=== PATIENT | male | born 1955 | race Caucasian/White ===

== ENCOUNTER 2020-01-06 08:25 | Outpatient (CLI) | payer OTHER ==
--- NOTE | 2020-01-07 00:50 | Ultrasound Report ---
Reason: CHRONIC KIDNEY DISEASE Procedure Date: 01/06/2020 Accession Number: [id number] / [id number] Procedure: US - Retroperitoneal CPT Code: Final Report FULL RESULT: EXAM: RENAL ULTRASOUND EXAM DATE: 01/06/2020 09:30 AM. CLINICAL HISTORY: CHRONIC KIDNEY DISEASE. COMPARISON: None. TECHNIQUE: Real-time scanning was performed with static images obtained. FINDINGS: Right Kidney: 10.3 x 4.2 x 6.3 cm. Multiple nonobstructing stones measuring up to 5 x 5 mm. No contour deforming mass or hydronephrosis seen. Left Kidney: 11.6 x 5.6 x 4.6 cm. Nonobstructing lower pole stone measuring 6 mm. Bladder: Bilateral jets seen. Bladder diverticulum. Multiple bladder stones measuring up to 1.4 x 1.0 x 1.2 cm. The prevoid bladder volume was 90 cc. The postvoid bladder volume was 28 cc. Other: Prostate measures 4.9 x 4.2 x 3.5 cm. There is an area of somewhat prominent vascularity within the prostate. IMPRESSION: 1. Nonobstructing bilateral renal stones. 2. Bladder diverticulum. 3. Bladder stones measuring up to 1.4 x 1.0 x 1.2 cm. 4. Post void residual 28 cc. 5. There is some prominent vascularity within the prostate, of uncertain significance. Consider prostate MRI for further evaluation. RADIA
== END 2020-01-06 08:26 | disposition home or self-care (01) ==
LOC: DI 08:25
PROVIDERS: ATTEND Internal Medicine
DX: N20.0 Calculus of kidney (principal); N32.3 Diverticulum of bladder; N21.0 Calculus in bladder; N18.9 Chronic kidney disease, unspecified
CPT/HCPCS: 76770

== ENCOUNTER 2021-08-12 09:58 | Outpatient (CLI) | payer MEDICARE, BC | END 2021-08-12 09:59 | disposition home or self-care (01) | LOC: LAB 09:58 | PROVIDERS: ATTEND Internal Medicine Nephrology | DX: C61 Malignant neoplasm of prostate (principal); Z12.5 Encounter for screening for malignant neoplasm of prostate | CPT/HCPCS: 36415; 84153 ==

== ENCOUNTER 2021-08-13 09:43 | Outpatient (CLI) | payer MEDICARE, BC | END 2021-08-13 09:44 | disposition home or self-care (01) | LOC: LAB 09:43 | PROVIDERS: ATTEND Urology | DX: R97.20 Elevated prostate specific antigen [PSA] (principal) | CPT/HCPCS: 36415; 84153 ==

== ENCOUNTER 2021-11-17 09:10 | Outpatient (CLI) | payer MEDICARE ==
[2021-11-17 09:34] LABS: BASOPHILS # (AUTO) 0.1 10^3/uL (0.0-0.1); BASOPHILS % (AUTO) 0.8 %; EOSINOPHILS # (AUTO) 0.2 10^3/uL (0.0-0.7); EOSINOPHILS % (AUTO) 2.4 %; HCT - HEMATOCRIT 38.5 % (42.0-52.0); HGB - HEMOGLOBIN 12.5 g/dL (14.0-18.0); LYMPHOCYTES # (AUTO) 1.4 10^3/uL (1.5-3.5); LYMPHOCYTES % (AUTO) 18.8 %; MEAN CORPUSCULAR HEMOGLOBIN 29.3 pg (27.0-31.0); MEAN CORPUSCULAR HGB CONC 32.5 g/dL (32.0-36.0); MEAN CORPUSCULAR VOLUME 90.4 fL (80.0-94.0); MEAN PLATELET VOLUME 10.4 fL (7.4-11.4); MONOCYTES # (AUTO) 0.7 10^3/uL (0.0-1.0); MONOCYTES % (AUTO) 8.8 %; NEUTROPHILS # (AUTO) 5.1 10^3/uL (1.5-6.6); NEUTROPHILS % (AUTO) 68.8 %; PLT - PLATELET COUNT 190 10^3/uL (130-450); RED BLOOD COUNT 4.26 10^6/uL (4.70-6.10); RED CELL DISTRIBUTION WIDTH 13.4 % (12.0-15.0); WHITE BLOOD COUNT 7.4 x10^3/uL (4.8-10.8)
[2021-11-17 09:45] LABS: CALCIUM 9.3 mg/dL (8.5-10.3)
[2021-11-18 11:19] LABS: CHOL/HDL RATIO 4.4 (<5.0); CHOLESTEROL 258 mg/dL; HDL CHOLESTEROL 59 mg/dL; LDL CHOLESTEROL,CALCULATED 181 mg/dL; LDL/HDL RATIO 3.1 (<3.6); TRIGLYCERIDES 89 mg/dL; VLDL CHOLESTEROL 18 mg/dL
== END 2021-11-17 09:11 | disposition home or self-care (01) ==
LOC: LAB 09:10
PROVIDERS: ATTEND Internal Medicine Nephrology
DX: N05.9 Unspecified nephritic syndrome with unspecified morphologic changes (principal); D70.9 Neutropenia, unspecified; D63.1 Anemia in chronic kidney disease; E78.5 Hyperlipidemia, unspecified
CPT/HCPCS: 36415; 80048; 80061; 83721; 85025

== ENCOUNTER 2024-05-11 11:16 | Outpatient (CLI) | payer MEDICARE | END 2024-05-11 23:59 | disposition EMS.NT | LOC: EMS 11:16 | DX: T67.1XXA Heat syncope, initial encounter (principal) ==

== ENCOUNTER 2025-06-17 13:02 | Observation (INO) ==
--- OUTSIDE RECORDS SUMMARY | 2025-06-17 13:38 | EXTERNAL MEDICAL SUMMARY RPT | Continuity of Care Document ---
Author Organization [facility] Address [address] [place] [id number] Phone Problems date description facility 2025-03-25 10:18 Unspecified nephriti c syndrome with unspecified morphologic changes [email or web address] 2025-04-03 12:21 Unspecified nephriti c syndrome with unspecified morphologic changes [facility] 2025-04-03 12:21 Cystitis, unspecified without h [facility]ia [facility] 2025-04-03 12:21 Dysuria [facility] 2025-05-21 14:33 Hypo-osmolality and hyponatremi a [email or web address] 2025-05-21 14:33 Urinary tract infection, site n ot specified [facility] 2025-05-21 14:53 Hypo-osmolality and hyponatremi a [facility] 2025-05-21 14:53 Urinary tract infection, site n ot specified [facility] 2025-05-22 16:24 Hypo-osmolality and hyponatremi a [facility] 2025-05-22 16:24 Urinary tract infection, site n ot specified [facility] 2025-05-22 16:30 Hypo-osmolality and hyponatremi a [facility] 2025-05-22 16:30 Urinary tract infection, site n ot specified [facility] 2025-05-22 16:32 Hypo-osmolality and hyponatremi a [facility] 2025-05-22 16:32 Urinary tract infection, site n ot specified [facility] 2025-05-22 16:40 Hypo-osmolality and hyponatremi a [facility] 2025-05-22 16:40 Urinary tract infection, site n ot specified [facility] 2025-05-22 17:00 Hypo-osmolality and hyponatremi a [facility] 2025-05-22 17:00 Urinary tract infection, site n ot specified [email or web address] 2025-05-22 17:19 Hypo-osmolality and hyponatremi a [email or web address] 2025-05-22 17:19 Urinary tract infection, site n ot specified [email or web address] 2025-05-23 00:06 Hypo-osmolality and hyponatremi a [email or web address] 2025-05-23 00:06 Urinary tract infection, site n ot specified [facility] 2025-05-26 17:42 Hypo-osmolality and hyponatremi a [email or web address] 2025-05-27 05:44 Hypo-osmolality and hyponatremi a [email or web address] 2025-05-27 05:44 Urinary tract infection, site n ot specified [email or web address] 2025-05-27 09:07 Hypo-osmolality and hyponatremi a [email or web address] 2025-05-27 09:07 Urinary tract infection, site n ot specified [email or web address] 2025-05-28 00:04 Hypo-osmolality and hyponatremi a [email or web address] 2025-05-28 09:46 Hypo-osmolality and hyponatremi a [email or web address] 2025-05-28 09:46 Urinary tract infection, site n ot specified [email or web address] 2025-05-28 09:46 [facility] oliguria [facility] 2025-05-28 12:58 Hypo-osmolality and hyponatremi a [email or web address] 2025-05-28 14:44 Cystitis, unspecified without h ematuria [email or web address] 2025-05-28 16:07 Cystitis, unspecified without h ematuria [email or web address] 2025-05-28 16:07 Urgency of urination [facility] 2025-05-29 00:04 Cystitis, unspecified without h ematuria [email or web address] 2025-05-29 09:39 Cystitis, unspecified without h ematuria [email or web address] Results/Labs test date facility value unit notes Result panel 1 GLUCOSE 2025-03-24 08:41 [email or web address] 109 mg/dl As of April 2023 testing method has changed, this may include reference ranges. ANION GAP 2025-03-24 08:41 [email or web address] 11.0 (missing ) (missing) SODIUM 2025-03-24 08:41 [facility] 137 mmol/l (missing) GFR - MDRD 2025-03-24 08:41 [facility] 20 (lucía guzmán) Social History date description facility
[2025-06-17 14:04] LABS: HCT - HEMATOCRIT 40.4 % (42.0-52.0); HGB - HEMOGLOBIN 13.4 g/dL (14.0-18.0); MEAN PLATELET VOLUME 10.7 fL (7.4-11.4); NRBC ABSOLUTE COUNT (AUTO) 0.00 x10^3/uL; NUCLEATED RED BLOOD CELLS AUTO 0.0 /100WBC; PLT - PLATELET COUNT 227 10^3/uL (130-450); RED CELL DISTRIBUTION WIDTH 14.3 % (12.0-15.0)
[2025-06-17 14:16] LABS: ALT ALANINE AMINOTRANSFERASE 16.0 IU/L (10-60); AST ASPARTATE AMINOTRANSFERASE 22.0 IU/L (10-42); BUN - BLOOD UREA NITROGEN 46.0 mg/dL (6-20); CARBON DIOXIDE - CO2 34.0 mmol/L (21-32); CREATININE 3.0 mg/dL (0.6-1.3); GFR - MDRD 21.0 (>89)
--- NOTE | 2025-06-17 16:44 | ED Physician Documentation ---
History of Present Illness Stated complaint Stated Complaint: CATH ISSUES Chief complaint Chief Complaint: General Additonal information Additional information: Patient is a 69-year-old male with history of Monticello's disease, diffuse myalgias, BPH, who presents the ER due to concerns for failure to thrive. and patient share that he has been struggling with urinary obstruction, and was seen in the ER yesterday elsewhere, had had a Peralta catheter placed. He presented initially in part because his Peralta catheter bag exploded overnight, and was draining. During my evaluation this has been replaced, and flowing without difficulty. Patient and share that he has been unintentionally losing weight over the last several weeks, and is down approximate 15 pounds. He states that when he ambulates he is frequently lightheaded, and has had a few falls. He and his sleep in different locations, and the other night he had a fall in the middle of the night. He denied any loss of consciousness, and does not endorse any pain as a result of this. Patient and are concerned about his deteriorating status, and presented the ER for evaluation, and admission/discharge planning to safer facility. Review of Systems Status of ROS: See HPI Meds/Allgy Home Medications Ambulatory Orders Medication Instructions Recorded Confirmed atorvastatin 20 mg tablet (Lipitor) 40 mg PO QDAY 02/2006/17/25 cefdinir 300 mg capsule 300 mg PO BID 06/17/2506/17 gabapentin 100 mg capsule 100 mg PO HS 06/17/25 Allergies Allergies Allergy/AdvReac Type Severity Reaction Status Date / Time amlodipine AdvReac Severe sedation Verified 06/17/25 15:23 finasteride AdvReac Severe sedation Verified 06/17/25 15:23 lacosamide AdvReac Severe sedation Verified 06/17/25 15:23 tropical fruits AdvReac Intermediate urinary Uncoded 06/17/25 15:23 reaction PFSH Active Problems All Active Problems (Updated 06/17/25 @ 18:44 by Flynn Jones MD) Adult failure to thrive (Acute) Protein calorie malnutrition (Acute) Postobstructive diuresis (Acute) Acute urinary retention (Acute) Protein-calorie malnutrition, severe (Acute) Acute hyponatremia (Acute) UTI (urinary tract infection) (Acute) History of fibromyalgia (Acute) Chronic pain (Acute) Medical History Medical History (Updated 06/17/25 @ 18:44 by Flynn Jones MD) 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 Home Mobility Equipment: Cane Do you feel safe in your home environment?: Yes History of physical, verbal, emotional, or financial abuse?: No ETOH Use: None Substance Use: denies use Exam Exam Vital Signs: Vital Signs x48h Temp Pulse Resp BP Pulse Ox 06/17/25 18:03 81 20 114/76 91 L 06/17/25 17:22 77 20 109/74 92 06/17/25 15:41 82 18 96/57 L 92 06/17/25 13:12 36.1 C L 98 18 99/73 96 Constitutional Appears stated age, resting in examination bed, lean, emaciated appearance. HENMT normocephalic and head/scalp atraumatic Eyes PERRL, EOMs intact bilaterally, conjunctivae normal and no scleral icterus Neck/C-Spine visual inspection normal, trachea midline and cervical spine nontender Chest palpation of chest normal Respiratory breath sounds equal bilaterally and normal respiratory effort Cardiovascular normal heart rate noted and regular rhythm noted Mildly low blood pressure, 96/57, normal S1-S2, no murmurs. Regular rate and rhythm. Radial pulses 2+ and symmetric Gastrointestinal abdomen soft to palpation and nontender to palpation Genitourinary Peralta catheter in place Extremities normal to inspection and normal to palpation Neurology Alert and oriented x 3. Cranial nerves grossly intact. Strength is symmetric, 5 out of 5 bilaterally. Sensation intact throughout this. Psychiatry Mental Status Exam documented in the separate MSE oriented x3 Skin Pale, appears gaunt. Results Vitals Vitals: Vital Signs - 24 hr 06/17/25 13:12 06/17/25 15:41 06/17/25 17:22 Temperature 36.1 C L Temperature Source Temporal Artery Scan Pulse Rate 98 82 77 Respiratory Rate 18 18 20 Blood Pressure 99/73 96/57 L 109/74 O2 Saturation 96 92 92 O2 Source Room air Room air Room air Pain Intensity 0 0 0 06/17/25 18:03 Temperature Temperature Source Pulse Rate 81 Respiratory Rate 20 Blood Pressure 114/76 O2 Saturation 91 L O2 Source Room air Pain Intensity 0 Oxygen O2 Source Room air Labs Labs: Laboratory Tests 06/17/25 06/17/25 13:51 16:50 WBC 7.0 RBC 4.32 L Hgb 13.4 L Hct 40.4 L MCV 93.5 MCH 31.0 MCHC 33.2 RDW 14.3 Plt Count 227 MPV 10.7 Neut # (Auto) 5.6 Lymph # (Auto) 0.6 L [place] # (Auto) 0.6 Eos # (Auto) 0.1 Baso # (Auto) 0.0 Absolute Nucleated RBC 0.00 Nucleated RBC % 0.0 Sodium 132 L Potassium 4.3 Chloride 91 L Carbon Dioxide 34 H Anion Gap 7.0 BUN 46 H Creatinine 3.0 H Estimated GFR (MDRD) 21 L Glucose 140 H Calcium 9.4 Magnesium 2.4 H Total Bilirubin 0.5 AST 22 ALT 16 Alkaline Phosphatase 96 Troponin I High Sens 14.3 Total Protein 6.8 Albumin 4.0 Globulin 2.8 Albumin/Globulin Ratio 1.4 Lipase 188 H TSH 2.48 Urine Color LT. YELLOW Urine Clarity CLOUDY Urine pH 6.0 Ur Specific [place] 1.015 Urine Protein TRACE Urine Glucose (UA) NEGATIVE Urine Ketones NEGATIVE Urine Occult Blood SMALL H Urine Nitrite POSITIVE H Urine Bilirubin NEGATIVE Urine Urobilinogen 0.2 (NORMAL) Ur Leukocyte Esterase MODERATE H Urine RBC 6-10 H Urine WBC 11-25 H Ur Squamous Epith Cells NONE SEEN Urine Bacteria Moderate H Urine Culture Comments INDICATED PD Medical Decision Making ED course ED course: Assessment: Patient is a 69-year-old male with history of Monticello's disease, significant rheumatologic history, presenting with unintentional weight loss, weakness, new onset urinary obstruction yesterday with Peralta catheter placement at outside ER, unwitnessed falls at home where he lives alone. DDx: Includes but not limited to, UTI, electrolyte abnormality, volume depletion, failure to thrive, traumatic subarachnoid hemorrhage, subdural hemorrhage, skull fracture, dehydration, etc. Workup: Sodium 132, BUN 46, creatinine 3.0 appears similar to baseline, lipase 188. CT head without evidence of acute injury. Urine studies with moderate leukocyte esterase, positive nitrites, no squamous epithelial cells. Treatment: 1 L LR, Rocephin 2 g Discussion: Patient and are concerned about patient deteriorating status. He does fit the picture of someone who is failure to thrive/severe protein calorie restriction, and do agree that his knee living alone with their ambulation concerns and falls that are unwitnessed is concerning. He is not on blood thinners. Workup today shows no evidence of intracranial pathology after his fall. He is otherwise denies pain throughout his habitus currently. He does have a UTI, which I started with single dose of IV antibiotics in the ER. At time of my signout I had discussed preliminarily with hospitalist team admission for this patient due to his UTI, and overall deteriorating picture. At time of my handoff I was awaiting admission decision from hospitalist team. Pt handed off to Dr. Hutchins. Please refer to his documentation. Disposition: Remains in ER, awaiting admission decision from hospitalist team. Discharge Plan Discharge Patient Disposition: ED Place in Observation Condition: Stable Clinical Impression: Protein-calorie malnutrition, severe, Acute urinary retention, Postobstructive diuresis, UTI (urinary tract infection), Protein calorie malnutrition, Adult failure to thrive Prescriptions: No Action cefdinir 300 mg capsule 300 mg PO BID gabapentin 100 mg capsule 100 mg PO HS atorvastatin [Lipitor] 20 mg tablet 40 mg PO QDAY Print Language: Tamazight Stand Alone Forms: PCP List
[2025-06-17] MEDS: LACTATED RINGERS 1,000 ML IV STA (16:48)
[2025-06-17 17:05] LABS: GLUCOSE, URINE (UA) NEGATIVE (NEGATIVE); KETONES,URINE (UA) NEGATIVE (NEGATIVE); OCCULT BLOOD,URINE SMALL (NEGATIVE)
[2025-06-17 17:14] LABS: SQUAMOUS EPITHELIAL CELL,UR NONE SEEN (<= Few)
--- NOTE | 2025-06-17 17:42 | CT Report ---
PROCEDURE: CT Head WO INDICATIONS: AMS, frequent falls TECHNIQUE: CT of the head was performed, without intravenous contrast. Reformats: Coronal and sagittal. For radiation dose reduction, the following was used: automated exposure control, adjustment of mA and/or kV according to patient size. COMPARISON: None. FINDINGS: Image quality: Diagnostic. CSF spaces: Basal cisterns are patent. No extra-axial fluid collections. Ventricles are normal in size and shape. Brain: No midline shift. No intracranial mass effect or hemorrhage. No area of hypodensity in a vascular distribution to suggest acute infarction. There is periventricular hypodensity consistent with chronic microvascular ischemic disease. Age-related parenchymal loss. Skull and face: Calvarium and visualized facial bones are intact, without suspicious lesions. Prior right craniotomy. Sinuses: Mucosal thickening in the left maxillary sinus. Mastoid Are clear. IMPRESSION: No acute intracranial pathology. Prior right craniotomy. Reviewed by: Herbert Shahid MD on 06/17/2025 5:41 PM PDT Approved by: Herbert Shahid MD on 06/17/2025 5:41 PM PDT Station ID: [id number]
--- NOTE | 2025-06-17 18:39 | ED Physician Documentation ---
ED Addendum Addendum Addendum: Signout from Dr. Moreno at 6:30 PM. We were awaiting the hospitalist to call back and I went ahead and called ANTONIO Arellano noting that the patient probably also fit criteria for severe protein calorie malnutrition and she will bring him in to observation. Discharge Plan Discharge Patient Disposition: ED Place in Observation Condition: Stable Clinical Impression: Protein-calorie malnutrition, severe, Acute urinary retention, Postobstructive diuresis, UTI (urinary tract infection), Protein calorie malnutrition, Adult failure to thrive Interventions: ED Admission Assessment Last Done: 06/17/25 19:42
[2025-06-17] MEDS: cefTRIAXone 2 GM in SODIUM CHLORIDE 0.9% MINIBAG 100 ML IV STA (18:59)
--- NOTE | 2025-06-17 19:39 | HISTORY & PHYSICAL EXAMINATION ---
Chief Complaint Chief Complaint Chief Complaint: problems with narayan History of Present Illness History Obtained From Records Reviewed: [facility] ED visit last evening,Sheron rheumatology note, neurology note History obtained from: patient and spouse History of Present Illness HPI Comment/Other: 69M w Carlos's Chorea, Ankylosing spondylitis, BPH, SDH s/p crani, nephrolithiasis, gluten intolerance presents to ED with multiple complaints. unintentional weight loss over the last several weeks, at least 15# since December, and defintely 5-8# over the last week. Went to see a new PCP in [place] with Sheron yesterday, was sent to the ED, after it was noted that he was in urinary retention. He states that overnight, his narayan bag "exploded, and so they came here. Things have not been going well at home. He walks without assistive devices, but has noted that he is more and more unsteady on his feet. He was dx with his Conecuh's disease in 2020 after being treated for a subdural hematoma- at that time also had complicated urinary treat infection. in any event, at home, more and more unsteady on his feet, and over the last week or so he has been weak with poor appetite. Denies alcohol use, not a smoker. live with , but sleeps in a separate dwelling from her. Wants to be DNR, but does not want me to share this with his family. Adriana is his surrogate decision maker. Meds/Allgy Home Medications Ambulatory Orders Medication Instructions Recorded Confirmed atorvastatin 20 mg tablet (Lipitor) 40 mg PO QDAY 02/2006/17/25 cefdinir 300 mg capsule 300 mg PO BID 06/17/2506/17 gabapentin 100 mg capsule 100 mg PO HS 06/17/25 Allergies Allergies Allergy/AdvReac Type Severity Reaction Status Date / Time amlodipine AdvReac Severe sedation Verified 06/17/25 15:23 finasteride AdvReac Severe sedation Verified 06/17/25 15:23 lacosamide AdvReac Severe sedation Verified 06/17/25 15:23 tropical fruits AdvReac Intermediate urinary Uncoded 06/17/25 15:23 reaction PFSH Active Problems All Active Problems (Updated 06/17/25 @ 23:17 by ANTONIO Blood) Conecuh disease (Acute) Renal insufficiency (Acute) Hypotension (Acute) Adult failure to thrive (Acute) Protein calorie malnutrition (Acute) Postobstructive diuresis (Acute) Acute urinary retention (Acute) Acute hyponatremia (Acute) UTI (urinary tract infection) (Acute) History of fibromyalgia (Acute) Chronic pain (Acute) Medical History Medical History (Updated 06/17/25 @ 23:17 by ANTONIO Blood) Protein-calorie malnutrition, severe Subdural hematoma Chronic kidney disease Social History Social History (Updated 06/17/25 @ 15:28 by Chico Desai RN) Smoking Status: Never smoker Second hand tobacco smoke exposure: No Do you dip or chew tobacco?: No Do you vape?: No Living arrangement: At home Marital Status: Living Condition: With spouse/s.o. Level: Independent Home Mobility Equipment: Cane and Walker Do you feel safe in your home environment?: Yes History of physical, verbal, emotional, or financial abuse?: No ETOH Use: None Substance Use: denies use POLST Patient has POLST: No Review of Systems Status of ROS: 10 or more systems reviewed and unremarkable except as noted in history and below Prior Level of Functionality: walks without assistive devices, but he thinks he should probably use a walker. Exam Exam Vital Signs: Vital Signs x48h Temp Pulse Pulse Resp BP BP Pulse Ox 06/17/25 20:00 36.6 C 77 16 119/75 97 06/17/25 18:03 81 20 114/76 91 L 06/17/25 17:22 77 20 109/74 92 06/17/25 15:41 82 18 96/57 L 92 Constitutional normal general appearance and no apparent distress almost constant head movements, appears chronically ill, temporal wasting HENMT normocephalic, head/scalp atraumatic, hearing grossly normal bilaterally, oral mucous membranes normal, dentition normal and gingiva normal Eyes conjunctivae normal Neck/C-Spine visual inspection normal and trachea midline Lymph no lymphadenopathy noted Chest inspection of chest normal Respiratory breath sounds equal bilaterally, normal respiratory effort and clear to auscultation bilaterally Cardiovascular normal heart rate noted Gastrointestinal abdomen soft to palpation and nontender to palpation schaphoid abdomen Genitourinary no CVA tenderness Back/Pelvis spine normal to inspection Extremities normal to inspection and normal to palpation Neurology movement abnormality noted (constant head movemetns. ) (choreoathetosis) and no sensory deficits noted Psychiatry mental status grossly normal, oriented x3, thought process normal, cooperative, affect normal and memory normal Skin skin color normal and no rash Conclusion/Plan Problem List (1) Adult failure to thrive: Plan: He is not feeling well at home. he feels weak and dizzy. he had hypotension in the ED that resolved with fluid administration, but he does not feel that he can take care of himself at home his voices that they are not doing well, and that he is not getting the help he needs at home. They do not have estabilished primary care, and are in need of PT and home health services. I discussed this patient with Dr Jones, and Dr Hutchins in the ED ,and the decision was made to admit him to Observation status. I will start IV abx, order PT eval, and follow urine cultures. I will consult social work to set up outpatient services for him. Selected Entries 06/17/25 13:12 06/17/25 15:41 06/17/25 17:22 Blood Pressure 99/73 96/57 L 109/74 06/17/25 18:03 Blood Pressure 114/76 (2) UTI (urinary tract infection): Plan: This is a gentleman with who presented to ED at [facility] with acute urinary retention yesterday. he was prescribed abx and a narayan was placed. He has a UA which remains positive in our ED. he was given 2g rocephin and I will continue this on admission. I was able to look at UA yesterday at [facility], Leuk est pos, nitrite neg. he is nitrite positive tonight. no growth to date on urine culture at [facility] on 06/16. (3) Acute hyponatremia: Plan: History of same, 132 on admit. I have ordered repeat BMP for the AM. I think this will resolve with treatment of his UTI and improved oral intake. outpatient labs on 06/16 showed Na 131 (4) Acute urinary retention: Plan: Narayan in place. he is estabilished with Dr Fu at [facility] urology. would recommend that this stays in place until he is able to followup. (5) Protein calorie malnutrition: Plan: decreased po intake over the last months. This part of his failure to thrive. stuggling with constipation likely as a part of his neurological disorder. (6) Hypotension: Plan: maybe related to poor po intake. he was given one liter in the ED with improvement. I will give him 100ml/hr for a total of 2 liters, and I have given him a gluten free diet, per his request. will check orthostatic vital signs daily. (7) Renal insufficiency: Plan: [facility], his baseline Cr is about 3.0. he is at baseline, this is not ANNAMARIE, his carboy filler is Dr Elmore (8) Conecuh disease: Plan: diagnosed in 2020 follows with neurology. Plan 69M with severe degenerative neurological disorder and FTT pressents with acute UTI, and transient hypotension. I will admit to obs status and plan to dc to home with home health after appropriate eval and treatment. I have spent 85 minutes in the care of this patient today. This includes time [id number], review and ordering of diagnostic imaging and laboratory studies and consultation with other providers. Monitoring the patient's signs symptoms, evaluation of medication effectiveness and patient's response to treatment. Lab Results Lab results reviewed: Yes 06/17/25 13:51 06/17/25 13:51 Diagnostic Imaging Results Diagnostic Imaging Results Comments: CT head neg EKG Results EKG Interpreted Independently: No EKG Findings: sinuse at rate of 75 Core Measures Anticipated LOS I expect patient to be DC'd or transferred within 96 hours.: Yes DVT/VTE - Prophylaxis VTE/DVT Device ordered at admit?: Yes VTE/DVT Prophylaxis med ordered at admit?: Yes
[2025-06-17] MEDS ORDERED: oxyCODONE 5 MG TABLET PO PRN (19:42)
[2025-06-17] MEDS ORDERED: ONDANSETRON 4 MG/2 ML VIAL IVP PRN (19:42)
[2025-06-17] MEDS ORDERED: SODIUM CHLORIDE FLUSH 0.9% 10 ML SYRINGE IVP PRN (19:42)
[2025-06-17] MEDS ORDERED: ACETAMINOPHEN 325 MG TABLET PO PRN (19:42)
[2025-06-17] MEDS: DEXTROSE 5%-0.9% NACL 1,000 ML IV SCH (19:50)
[2025-06-17] MEDS: ATORVASTATIN 40 MG TABLET PO SCH (20:39)
[2025-06-17] MEDS: GABAPENTIN 100 MG CAPSULE PO SCH (20:39)
[2025-06-18] MEDS: SODIUM CHLORIDE FLUSH 0.9% 10 ML SYRINGE IVP SCH (02:54)
[2025-06-18 06:25] LABS: HCT - HEMATOCRIT 37.8 % (42.0-52.0); HGB - HEMOGLOBIN 12.1 g/dL (14.0-18.0); MEAN PLATELET VOLUME 10.1 fL (7.4-11.4); NRBC ABSOLUTE COUNT (AUTO) 0.00 x10^3/uL; NUCLEATED RED BLOOD CELLS AUTO 0.0 /100WBC; PLT - PLATELET COUNT 209 10^3/uL (130-450); RED CELL DISTRIBUTION WIDTH 14.4 % (12.0-15.0)
[2025-06-18 06:42] LABS: BUN - BLOOD UREA NITROGEN 34.0 mg/dL (6-20); CARBON DIOXIDE - CO2 29.0 mmol/L (21-32); CREATININE 2.3 mg/dL (0.6-1.3); GFR - MDRD 28.0 (>89)
[2025-06-18] MEDS: CHOLECALCIFEROL 5,000 UNIT CAPSULE PO SCH (08:28)
[2025-06-18] MEDS: ENOXAPARIN 30 MG/0.3 ML SYRINGE SUBQ SCH (08:29)
[2025-06-18] MEDS: cefTRIAXone 2 GM in SODIUM CHLORIDE 0.9% MINIBAG 100 ML IV SCH (08:29)
--- NOTE | 2025-06-18 13:06 | PT Plan of Care ---
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 Admitted with UTI, hyponatremia and found to be orthostatic. PMH includes [place]'s dx in 2020 and ankylosing spondylitis. 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 Please see medical record for further hx. Cleared for eval by hospitalist. Pt lives in [place] with and is normally indep with mobility and ADLs but has increasing difficulty lately with increased falls. Upon PT eval, pt reports vertigo ongoing about 1yr and has tried to self treat with minimal success. Overall pt transfers with CGA and orthostatics are negative (see above) but pt endorses vertigo. Pt benefits from FWW use for mobility in room and CGA to manage obstacles and turns. He is a high fall risk given his weakness, history of falls, dizziness and neuro dx. PT and pt discuss BPPV testing and tx after his IV is complete. Pt will benefit from continued PT in acute setting given his mobility, balance and gait impairments. Plan to treat BPPV as appropriate and progress mobility as able. When medically clear, PT rec SNF vs home with HH services. Pt prefers to dc home and is open to HH. Will benefit from PT/OT/bathaide and increased CG support as his mobility declines. Goals Improve bed mobility to: Independent Improve supine to sit to: Independent Improve sit to stand to: Modified Independent Improve pivot transfer ability Modified Independent to: Improve sit to supine to: Modified Independent Improve gait ability to: SBA Assistive Device Used: Front Wheeled Walker PT Plan of Care Frequency 1-2x/day Duration Until goals are met Discharge Recommendations Discharge Location SNF v home Support/Services Needed Home Health P.T. DC Equipment Recommended Front wheeled walker Other may need FWW Transport Needs at Discharge Personal vehicle
--- NOTE | 2025-06-18 14:58 | PHARMACY PROGRESS NOTE ---
Best Possible Medication History Admit Date and Time: 06/17/25 1837 Home Medications Medication Instructions Recorded Confirmed Type cefdinir 300 mg capsule 300 mg PO BID 06/17/2506/17 History gabapentin 100 mg capsule 200 mg PO HS 06/17/25 History atorvastatin 40 mg tablet 40 mg PO HS 06/18/25 5 History azelastine 137 mcg (0.1 %) nasal 1 spray intranasal DA ELOISE PRN 06/18/25 06/18/25 History spray RHINITIS cholecalciferol (vitamin D3) 125 10,000 unit PO DAILY 06/18/25 06/18/25 History mcg (5,000 unit) tablet ferrous gluc-vitamin C-B12-IF 1 tab PO 1200 06/18/25 0 06/18/25 History tablet ipratropium bromide 21 mcg (0.03 2 spray intranasal DA ELOISE PRN 06/18/25 06/18/25 History %) nasal spray RHINITIS loratadine 10 mg tablet (Allergy 10 mg PO DAILY PRN al lergy symptoms 06/18/25 06/18/25 History Relief (loratadine)) Processed by: Pharmacy Medications reviewed in ED?: No Medication History completed: Yes Patient Interview: Completed Secondary Source(s): Insurance records [facility] Statement: As the person ultimately responsible for medication therapy, providers are able to order a medication from an existing home medication list in [facility] via the "Reconcile Routine" prior to Confirmation of that medication by technical support intern. Such practice is discouraged except when the physician, in their clinical judgment, deems that a medical need exists for a medication without regard to previous use.
--- NOTE | 2025-06-18 16:00 | PROVIDER PROGRESS NOTE ---
Subjective Prog Note Date Prog Note Date: 06/18/25 Subjective Pt reports feeling: Improved Current Medications Current Medications Current Medications: Current Medications Generic Name Dose Route Start Last Admin Trade Name Freq PRN Reason Stop Dose Admin Acetaminophen 650 mg 06/17/25 19:42 Acetaminophen 325 Mg Tablet PO Q4HR PRN Pain 1 to 4, or Fever Atorvastatin Calcium 40 mg 06/17/25 19:42 06/17/25 20:39 Atorvastatin 40 Mg Tablet PO 40 mg DAILY MAME Administration Cholecalciferol 10,000 unit 06/18/25 09:00 06/18/25 08:28 Cholecalciferol 5,000 Unit Capsule PO 10,000 unit DAILY MAME Administration Enoxaparin Sodium 30 mg 06/18/25 09:00 06/18/25 08:29 Enoxaparin 30 Mg/0.3 Ml Syringe SUBQ 30 mg DAILY MAME Administration Gabapentin 100 mg 06/17/25 21:00 06/17/25 20:39 Gabapentin 100 Mg Capsule PO 100 mg HS MAME Administration Ceftriaxone Sodium 2 gm/ 100 mls @ 200 mls/hr 06/18/25 09:00 06/18/25 09:00 Sodium Chloride IV Infused DAILY MAME Infusion Ondansetron HCl 4 mg 06/17/25 19:42 Ondansetron 4 Mg/2 Ml Vial IVP Q6HR PRN Nausea / Vomiting Oxycodone HCl 5 mg 06/17/25 19:42 Oxycodone 5 Mg Tablet PO Q4HR PRN Pain 5 to 7 Polyethylene Glycol 17 gm 06/18/25 09:00 06/18/25 08:28 Polyethylene Glycol 3350 17 Gm Packet PO 17 gm DAILY MAME Administration Sodium Chloride 10 ml 06/17/25 19:42 Sodium Chloride Flush 0.9% 10 Ml Syringe IVP PRN PRN NEEDED PER PROVIDER ORDERS Sodium Chloride 10 ml 06/18/25 01:00 06/18/25 08:29 Sodium Chloride Flush 0.9% 10 Ml Syringe IVP Not Given 0100,0900,1700 [facility] Objective Vital Signs/Intake & Output Reviewed Vital Signs: Yes Vital Signs: Vital Signs x48h Temp Pulse Resp BP Pulse Ox 06/18/25 13:00 36.6 C 77 18 110/81 95 06/18/25 09:00 36.6 C 90 18 92/66 99 Intake & Output: Intake & Output 06/15/25 06/16/25 06/17/25 06/18/25 23:59 23:59 23:59 23:59 Intake Total 1363 / 1363 2017 Output Total 350 / 350 1225 / 1225 Balance 1013 / 1013 793 / 793 Weight (kg) 52.5 kg Objective General Appearance: positive No acute distress, Alert and Other (Chronically ill, malnourished appearing with bitemporal wasting. Near constant head movement) Eyes Bilateral: positive Normal inspection ENT: positive ENT inspection nml Neck: positive Nml inspection Respiratory: positive Chest non-tender and No respiratory distress Cardiovascular: positive Regular rate & rhythm and No murmur Abdomen: positive Non-tender Skin: positive Color nml Extremities: positive Non-tender Neurologic/Psychiatric: positive Oriented x3 and Other (Near constant head movement) Lab Results 06/18/25 06:13 06/18/25 06:13 Other Labs: Lab Results x24hrs 06/18/25 06/17/25 06/17/25 Range/Units 06:13 16:50 13:51 WBC 3.2 L (4.8-10.8) x10^3/uL RBC 3.99 L (4.70-6.10) 10^6/uL Hgb 12.1 L (14.0-18.0) g/dL Hct 37.8 L (42.0-52.0) % MCV 94.7 H (80.0-94.0) fL MCH 30.3 (27.0-31.0) pg MCHC 32.0 (32.0-36.0) g/dL RDW 14.4 (12.0-15.0) % Plt Count 209 (130-450) 10^3/uL MPV 10.1 (7.4-11.4) fL Neut # (Auto) 1.9 (1.5-6.6) 10^3/uL Lymph # (Auto) 0.8 L (1.5-3.5) 10^3/uL [place] # (Auto) 0.4 (0.0-1.0) 10^3/uL Eos # (Auto) 0.1 (0.0-0.7) 10^3/uL Baso # (Auto) 0.0 (0.0-0.1) 10^3/uL Absolute Nucleated RBC 0.00 x10^3/uL Nucleated RBC % 0.0 /100WBC Sodium 137 (135-145) mmol/L Potassium 3.7 (3.5-4.5) mmol/L Chloride 101 (101-111) mmol/L Carbon Dioxide 29 (21-32) mmol/L Anion Gap 7.0 (6-13) BUN 34 H (6-20) mg/dL Creatinine 2.3 H (0.6-1.3) mg/dL Estimated GFR (MDRD) 28 L (>89) Glucose 111 H (74-104) mg/dL Calcium 8.5 (8.5-10.3) mg/dL Magnesium 2.4 H (1.7-2.3) mg/dL Troponin I High Sens 14.3 (2.3-19.7) ng/L TSH 2.48 (0.34-5.60) uIU/mL Urine Color LT. YELLOW Urine Clarity CLOUDY (CLEAR) Urine pH 6.0 (5.0-7.5) PH Ur Specific [place] 1.015 (1.002-1.030) Urine Protein TRACE (NEGATIVE) mg/dL Urine Glucose (UA) NEGATIVE (NEGATIVE) mg/dL Urine Ketones NEGATIVE (NEGATIVE) mg/dL Urine Occult Blood SMALL H (NEGATIVE) Urine Nitrite POSITIVE H (NEGATIVE) Urine Bilirubin NEGATIVE (NEGATIVE) Urine Urobilinogen 0.2 (NORMAL) (NORMAL) E.U./dL Ur Leukocyte Esterase MODERATE H (NEGATIVE) Urine RBC 6-10 H (0-5) /HPF Urine WBC 11-25 H (0-3) /HPF Ur Squamous Epith Cells NONE SEEN (<= Few) Urine Bacteria Moderate H (None Seen) /HPF Urine Culture Comments INDICATED Assessment/Plan Problem List (1) Adult failure to thrive: Impression: Reported weakness and dizziness at home with hypotension that resolved in the ED. He reports having trouble taking care of himself and he has had significant weight loss. Of note, he recently started gabapentin at the recommendation of his complaint investigations officer. He has been instructed to increase this dose once he is done with his first week of gabapentin. 06/18: Evaluated by physical therapy, who recommended SNF. At this point, he is medically clear for SNF placement (2) UTI (urinary tract infection): Impression: UA with concern for UTI Continue Rocephin 2 g daily IV Anticipate discharge on Augmentin (3) Acute hyponatremia: Impression: Sodium 137 today (4) Acute urinary retention: Impression: P[place] in place (5) Protein calorie malnutrition: Impression: Nutrition consult (6) Hypotension: Impression: Resolved with IVF in the ER (7) Renal insufficiency: Impression: On chart review, his creatinine has been anywhere from 2.4-4.5 every time we have checked it. His creatinine was 3 on admit, 2.3 today BMP in a.m. (8) [place] disease: Impression: Follows neurology
[2025-06-18] MEDS: ATORVASTATIN 40 MG TABLET PO SCH (20:21)
[2025-06-18] MEDS: GABAPENTIN 100 MG CAPSULE PO ONE (20:33)
[2025-06-19 05:22] LABS: HCT - HEMATOCRIT 33.7 % (42.0-52.0); HGB - HEMOGLOBIN 11.0 g/dL (14.0-18.0); MEAN PLATELET VOLUME 10.8 fL (7.4-11.4); NRBC ABSOLUTE COUNT (AUTO) 0.00 x10^3/uL; NUCLEATED RED BLOOD CELLS AUTO 0.0 /100WBC; PLT - PLATELET COUNT 203 10^3/uL (130-450); RED CELL DISTRIBUTION WIDTH 14.6 % (12.0-15.0)
[2025-06-19 05:40] LABS: BUN - BLOOD UREA NITROGEN 33.0 mg/dL (6-20); CARBON DIOXIDE - CO2 29.0 mmol/L (21-32); CREATININE 2.1 mg/dL (0.6-1.3); GFR - MDRD 31.0 (>89)
[2025-06-19] MEDS: CETIRIZINE 10 MG TABLET PO SCH (08:16)
[2025-06-19] MEDS: CHOLECALCIFEROL 5,000 UNIT CAPSULE PO SCH (08:16)
[2025-06-19] MEDS ORDERED: CYANOCOBALAMIN PO SCH (12:00)
[2025-06-19] MEDS ORDERED: [UNRECOGNIZED DRUG - OTHER] PO SCH (12:00)
[2025-06-19] MEDS ORDERED: INTRINSIC FACTOR PO SCH (12:00)
[2025-06-19] MEDS ORDERED: FERROUS GLUCONATE PO SCH (12:00)
[2025-06-19 13:33] VITALS: BP 117/69; TEMP 98.6; O2SAT 100
--- NOTE | 2025-06-19 13:42 | Discharge Summary ---
Discharge Summary Admit Date: 06/17/25 Discharge Date: 06/19/25 Discharging Provider: Julius Vee Primary Care Provider: Feli PCP Code Status: Do Not Attempt Resuscitation DIAGNOSES Admission Diagnoses: Adult failure to thrive UTI Acute hyponatremia Acute urinary retention Protein calorie malnutrition, severe Hypotension Renal insufficiency Carlos's disease Discharge Diagnoses with Status of Each Condition: Adult failure to thrivedischarging with home health services UTIappears to be asymptomatic bacteriuria. Antibiotics discontinued Acute hyponatremiaresolved Acute urinary retentionFoley Protein calorie malnutrition, severeunderwent counseling with dietitian services Hypotensionresolved with IVF Renal insufficiencychronic, at baseline [place] diseasechronic HPI History of Present Illness: 69M w Carlos's Chorea, Ankylosing spondylitis, BPH, SDH s/p crani, nephrolithiasis, gluten intolerance presents to ED with multiple complaints. unintentional weight loss over the last several weeks, at least 15# since December, and defintely 5-8# over the last week. Went to see a new PCP in [place] with Sheron yesterday, was sent to the ED, after it was noted that he was in urinary retention. He states that overnight, his narayan bag "exploded, and so they came here. Things have not been going well at home. He walks without assistive devices, but has noted that he is more and more unsteady on his feet. He was dx with his [place]'s disease in 2020 after being treated for a subdural hematoma- at that time also had complicated urinary treat infection. in any event, at home, more and more unsteady on his feet, and over the last week or so he has been weak with poor appetite. Denies alcohol use, not a smoker. live with , but sleeps in a separate dwelling from her. Wants to be DNR, but does not want me to share this with his family. Adriana is his surrogate decision maker. HOSPITAL COURSE Hospital Course: Patient was held in observation and underwent PT eval who recommended SNF versus home health care. His hypotension resolved with IV fluids. He was started on antibiotics, but now this appears to be asymptomatic bacteria, so these have been stopped. Today, he elected to go home with home health. He has been instructed to follow-up with urology and to also establish himself with a PCP ALLERGIES Allergies Allergy/AdvReac Type Severity Reaction Status Date / Time amlodipine AdvReac Severe sedation Verified 06/17/25 15:23 finasteride AdvReac Severe sedation Verified 06/17/25 15:23 lacosamide AdvReac Severe sedation Verified 06/17/25 15:23 tropical fruits AdvReac Intermediate urinary Uncoded 06/17/25 15:23 reaction MEDICATIONS Ambulatory Orders Medication Instructions Recorded Confirmed gabapentin 100 mg capsule 200 mg PO HS 06/17/25 atorvastatin 40 mg tablet 40 mg PO HS 06/18/25 5 azelastine 137 mcg (0.1 %) nasal 1 spray intranasal DA ELOISE PRN 06/18/25 06/18/25 spray RHINITIS cholecalciferol (vitamin D3) 125 10,000 unit PO DAILY 06/18/25 06/18/25 mcg (5,000 unit) tablet ferrous gluc-vitamin C-B12-IF 1 tab PO 1200 06/18/25 0 06/18/25 tablet ipratropium bromide 21 mcg (0.03 2 spray intranasal DA ELOISE PRN 06/18/25 06/18/25 %) nasal spray RHINITIS loratadine 10 mg tablet (Allergy 10 mg PO DAILY PRN al lergy symptoms 06/18/25 06/18/25 Relief (loratadine)) PHYSICAL EXAM AT DISCHARGE Vital Signs: Vital Signs x48h Temp Pulse Resp BP BP Pulse Ox 06/19/25 13:25 37 C 92 18 117/69 100 06/19/25 09:00 36.7 C 97 18 84/60 L 97 General Appearance: positive No acute distress and Alert Eyes Bilateral: positive Normal inspection Respiratory: positive Chest non-tender and No respiratory distress Cardiovascular: positive Regular rate & rhythm Peripheral Pulses: positive 2+ Abdomen: positive Non-tender Back: positive Nml inspection Skin: positive Color nml Extremities: positive Non-tender Neurologic/Psychiatric: positive Oriented x3 and Other (Near constant head movement) LABS 06/19/25 04:52 06/19/25 04:52 FOLLOW UP Follow Up: With PCP, urology TIME SPENT Time Spent in Discharge (Minutes): 37 Discharge Plan Discharge Patient Disposition: Home, Self Care Condition: Stable Prescriptions: Continued gabapentin 100 mg capsule 200 mg PO HS atorvastatin 40 mg tablet 40 mg PO HS azelastine 137 mcg (0.1 %) spray,non-aerosol 1 spray INTRANASAL DAILY PRN (Reason: RHINITIS) ipratropium bromide 21 mcg (0.03 %) spray,non-aerosol 2 spray INTRANASAL DAILY PRN (Reason: RHINITIS) ferrous gluc-vitamin C-B12-IF Tablet 1 tab PO 1200 cholecalciferol (vitamin D3) 125 mcg (5,000 unit) tablet 10,000 unit PO DAILY loratadine [Allergy Relief (loratadine)] 10 mg tablet 10 mg PO DAILY PRN (Reason: allergy symptoms) Discontinued cefdinir 300 mg capsule 300 mg PO BID Diet: Regular Health Concerns: You came into the hospital with 15 pound weight loss since December, as well as difficulty with your Narayan catheter. You also had low blood pressure, which has improved with IV fluids. You were evaluated by physical therapy, who initially recommended SNF placement. Today, the plan is changed for you to go home with home health. Your urinalysis on presentation was suspicious for UTI, but your urine culture only shows a low-level bacterial colonization and you have no symptoms of this. I have discontinued your antibiotics. I would recommend that you follow-up with your urologist and establish yourself with a PCP. I have written orders for home health care to come out to help you with the house Print Language: Turkmen Patient Instructions: ED [place] Disease Stand Alone Forms: PCP List
== END 2025-06-19 14:15 | disposition home or self-care (01) ==
LOC: MS2 13:02 → ED 13:02 → MS2 19:43
PROVIDERS: ADMIT Physician Assistant Medical; ATTEND Physician Assistant Medical